=== PATIENT | male | born 1995 | race African-American/Black ===

== ENCOUNTER 2018-03-23 09:02 | Emergency (ER) | payer SELFPAY ==
[2018-03-23] MEDS ORDERED: Bicillin LA 1.2 MILLION UNITS/2 ML SYRINGE ONE (09:26)
[2018-03-23] MEDS ORDERED: Dexamethasone 10 MG/ML VIAL ONE (09:26)
[2018-03-23] MEDS ORDERED: Acetaminophen 500 MG TAB ONE (09:26)
== END 2018-03-23 10:06 | disposition home or self-care (01) ==
LOC: ERS 09:02
DX: J02.9 Acute pharyngitis, unspecified (principal); F17.210 Nicotine dependence, cigarettes, uncomplicated
CPT/HCPCS: 87081; 87430; 96372; J0561; J1100